=== PATIENT | male | born 1960 | race Caucasian/White ===

== ENCOUNTER 2016-07-14 10:00 | Day surgery (SDC) | payer MEDICARE, OTHER ==
[~2016-07-14 10:00] MED LIST: DIAZ5 PO; GABA250S PO; OXYC-360 PO; TIZA4 PO
[2016-07-14 10:39] VITALS: BP 128/82; PULSE 49; RESP 16; TEMP 97.7; O2SAT 99
[2016-07-14] MEDS ORDERED: TRIAMCINOLONE ACETONIDE 40 MG/ML VIAL ONE (11:27)
[2016-07-14] MEDS ORDERED: SODIUM BICARBONATE 8.4% INJ 50 ML ONE (11:28)
[2016-07-14] MEDS ORDERED: LIDOCAINE HCL 1% PF 30 ML VIAL ONE (11:28)
--- NOTE | 2016-07-14 12:08 | RADRPT ---
EXAM DATE/TIME: 07/14/2016 10:44 [place] COMPARISON: EXTERNAL COMPARISON: US GUIDED ASPIRATION LEFT, July 09, 2013, 8:33. [facility], MRI Left Knee, Jun 26 2016 INDICATIONS : Left knee ganglion. MEDICAL HISTORY : Hepatitis C. Left knee pain. GERD. SURGICAL HISTORY : Tonsillectomy. Left knee arthroscopy. Lumbar spine surgery. ENCOUNTER: Initial ACUITY: > 1 yr PAIN SCORE: 0/10 LOCATION: Left knee. FLUID: Total volume of 1 cc of clear fluid was removed. Fluid was discarded. Post procedure scanning reveals no hematoma or other complication. TECHNIQUE: 1. Ultrasound guidance for needle aspiration. 2. Aspiration. The risks, benefits, and alternatives to ultrasound guided aspiration were explained to the patient i n detail including the risk of bleeding and infection. Written and verbal informed consent was obtai sharee. Under direct ultrasound visualization needle was placed from the single puncture across the 3 largest fluid collections. Thick very viscous synovial fluid was removed. This was then injected with a mi xture of lidocaine and Kenalog. Patient was instructed to wear a simple [id number] knee brace for 3-5 days. CONCLUSION: Uncomplicated ultrasound guided aspiration and injection. Chris Clement MD FACR on July 14, 2016 at 12:04 Board Certified Radiologist. This report was verified electronically.
== END 2016-07-14 11:30 | disposition home or self-care (01) ==
LOC: HRAD 10:00 → HRIP 10:15 → HRAD 11:30
PROVIDERS: ATTEND Orthopaedic Surgery Orthopaedic Surgery of the Spine
DX: M67.462 Ganglion, left knee (principal)
CPT/HCPCS: 20612; 76942; J3301